=== PATIENT | female | born 2000 | race Caucasian/White ===

== ENCOUNTER 2021-06-04 18:52 | Emergency (ER) | payer BC ==
[~2021-06-04] VITALS: Ht 165.1 cm; Wt 57.1 kg
== END 2021-06-04 20:30 | disposition home or self-care (01) ==
LOC: ER 18:52
DX: S20.212A Contusion of left front wall of thorax, initial encounter (principal); Z91.040 Latex allergy status; Z87.891 Personal history of nicotine dependence; W10.9XXA Fall (on) (from) unspecified stairs and steps, initial encounter
CPT/HCPCS: 71101; 99283-25